=== PATIENT | male | born 1985 | race African-American/Black ===

== ENCOUNTER 2019-10-29 09:27 | Emergency (ER) | payer SELFPAY ==
[~2019-10-29] VITALS: Ht 182.9 cm; Wt 93.0 kg
[2019-10-29 10:23] LABS: HEMOGLOBIN 14.9 G/DL (14.2-18.0); MEAN CORPUSCULAR VOLUME 93 FL (80-99); PLATELET COUNT 256 K/UL (150-450); RED BLOOD COUNT 5.04 M/UL (4.70-6.10); RED CELL DISTRIBUTION WIDTH 13.7 % (11.6-14.8); WHITE BLOOD COUNT 3.4 K/UL (4.8-10.8)
--- NOTE | 2019-10-29 10:34 | Emergency Room Report ---
History of Present Illness General Chief Complaint: General Complaint Source: Patient Present Illness HPI Patient is a 34-year-old male who presents after increased nausea and difficulty with sleeping. Patient a prior history of alcohol abuse and reports drinking alcohol daily for several weeks. He states last drink was yesterday. He states he is been drinking approximate 1/5 of alcohol a day. Denies any hematemesis. Reports having increased nausea as well as some increased generalized shakiness. Denies any fever. Denies any cough. Allergies: Coded Allergies: No Known Allergies (Unverified , 10/29/19) COVID-19 Screening Contact w/high risk pt: No Recent Travel to affected area: No Experienced COVID-19 symptoms?: No Patient History Past Medical History: see triage record Reviewed Nursing Documentation: PMH: Agreed; PSxH: Agreed Review of Systems All Other Systems: negative except mentioned in HPI Physical Exam Vital Signs Date Time Temp Pulse Resp B/P (MAP) Pulse Ox O2 Delivery O2 Flow Rate FiO2 10/29/19 09:17 98.4 90 19 129/83 (98) 96 Room Air Sp02 EP Interpretation: reviewed, normal General Appearance: normal inspection, well appearing, no apparent distress, alert, GCS 15 Head: atraumatic ENT: normal ENT inspection, hearing grossly normal, normal voice Neck: normal inspection, full range of motion, supple, no bony tend Respiratory: normal inspection, lungs clear, normal breath sounds, no respiratory distress, no retraction, no wheezing Cardiovascular #1: regular rate, rhythm, no edema Gastrointestinal: normal inspection, normal bowel sounds, non tender, soft, no guarding, no hernia Genitourinary: no CVA tenderness Musculoskeletal: normal inspection, back normal, normal range of motion Neurologic: alert, motor strength/tone normal, belt loop maker III-XII nml as tested, oriented x3, responsive, speech normal, normal inspection Psychiatric: normal inspection, judgement/insight normal, mood/affect normal Medical Decision Making Diagnostic Impression: Primary Impression: Gastritis Additional Impression: Alcohol abuse ER Course Patient presented for increased nausea and generalized body aches. Differential diagnosis include was not limited to gastritis alcohol withdrawal , alcohol intoxication among others. Because of complexity of patient's case laboratory tests and imaging studies were ordered. Labs Test 10/29/19 10:10 White Blood Count 3.4 K/UL (4.8-10.8) Red Blood Count 5.04 M/UL (4.70-6.10) Hemoglobin 14.9 G/DL (14.2-18.0) Hematocrit 47.0 % (42.0-52.0) Mean Corpuscular Volume 93 FL (80-99) Mean Corpuscular Hemoglobin 29.5 PG (27.0-31.0) Mean Corpuscular Hemoglobin Concent 31.7 G/DL (32.0-36.0) Red Cell Distribution Width 13.7 % (11.6-14.8) Platelet Count 256 K/UL (150-450) Mean Platelet Volume 6.4 FL (6.5-10.1) Neutrophils (%) (Auto) % (45.0-75.0) Lymphocytes (%) (Auto) % (20.0-45.0) Monocytes (%) (Auto) % (1.0-10.0) Eosinophils (%) (Auto) % (0.0-3.0) Basophils (%) (Auto) % (0.0-2.0) Last Vital Signs Date Time Temp Pulse Resp B/P (MAP) Pulse Ox O2 Delivery O2 Flow Rate FiO2 10/29/19 09:17 98.4 90 19 129/83 (98) 96 Room Air Status: unchanged Condition: Stable Referrals: NOT CHOSEN IPA/,REFERRING (PCP) Nura Rodriguez MD October 29, 2019 10:33
[2019-10-29 10:42] LABS: ANION GAP 8 mmol/L (5-15); BLOOD UREA NITROGEN 12 mg/dL (7-18); CARBON DIOXIDE 30 MMOL/L (21-32); CHLORIDE 105 MMOL/L (98-107); CREATININE 1.4 MG/DL (0.55-1.30); POTASSIUM 4.3 MMOL/L (3.5-5.1); SODIUM 143 MMOL/L (136-145)
[2019-10-29 10:47] LABS: ALANINE AMINOTRANSFERASE 66 U/L (12-78); ALKALINE PHOSPHATASE 65 U/L (46-116); ASPARTATE AMINO TRANSFERASE 48 U/L (15-37); BILIRUBIN,TOTAL 0.9 MG/DL (0.2-1.0)
[2019-10-29] MEDS ORDERED: FAMOTIDINE20 MG ORAL (10:52)
[2019-10-29] MEDS ORDERED: ATIVAN1 MG ORAL (10:52)
[2019-10-29] MEDS ORDERED: LORazepam 1mg tab ORAL ONE (11:00)
[2019-10-29 11:09] VITALS: BP 129/83
[2019-10-29 11:19] VITALS: BP 129/83
== END 2019-10-29 11:08 | disposition home or self-care (01) ==
LOC: EMR 09:57
DX: K29.70 Gastritis, unspecified, without bleeding (principal); F10.10 Alcohol abuse, uncomplicated
CPT/HCPCS: 36415; 80053; 85007; 85025; 96361; 96374; 96375; 99284; G0480; J2405; J7030; S0028